=== PATIENT | female | born 1965 | race Caucasian/White ===

== ENCOUNTER 2024-02-23 19:44 | Outpatient (CLI) | payer MEDICARE ==
[2024-02-23 22:25] VITALS: BP 135/75; PULSE 66; RESP 17; TEMP 98; O2SAT 96
[2024-02-24] MEDS: LORazepam 1 MG TABLET PO ONE (02:29)
[2024-02-24 08:30] VITALS: BP 120/60; PULSE 78; RESP 20; TEMP 97.2; O2SAT 99
[2024-02-24] MEDS ORDERED: AMITRIPTYLINE HCL 25 MG TABLET PO SCH (21:00)
== END 2024-02-24 15:58 | disposition home or self-care (01) ==
LOC: CSU 19:44
PROVIDERS: ATTEND Student in an Organized Health Care Education/Training Program
DX: F43.21 Adjustment disorder with depressed mood (principal); F32.9 Major depressive disorder, single episode, unspecified; F90.9 Attention-deficit hyperactivity disorder, unspecified type; R45.851 Suicidal ideations
CPT/HCPCS: 90839; 90840; Z7610